=== PATIENT | female | born 1980 | race Hispanic/Latino ===

== ENCOUNTER 2017-07-20 20:15 | Emergency (ER) | payer BC, MEDICAID, OTHER ==
[~2017-07-20 20:15] MED LIST: ACET1TAB12 PO; ALBU8.5H8 IH; DOCU-116 PO; DULO60CA44 PO; IBUP-2071 PO
[2017-07-20] MEDS ORDERED: ONDANSETRON HCL MDV 20ML 2 MG/ML VIAL ONE (20:46)
[2017-07-20] MEDS ORDERED: SODIUM CHLORIDE 0.9% 1000ML 1,000 ML IV ONE (20:46)
[2017-07-20] MEDS ORDERED: KETOROLAC TROMETHAMINE 30MG/ML ONE (20:47)
[2017-07-20 20:48] LABS: BASOPHILS % (AUTO) 0.9 % (0.0-5.0); EOSINOPHILS % (AUTO) 2.2 % (0.0-8.0); HEMATOCRIT 40.2 % (36-48); LYMPHOCYTES % (AUTO) 24.9 % (21.0-51.0); MEAN CORPUSCULAR HEMOGLOBIN 30.8 pg (27.0-33.0); MEAN CORPUSCULAR HGB CONC 34.5 g/dL (32.0-36.0); MEAN CORPUSCULAR VOLUME 89.2 fL (79-99); MONOCYTES % (AUTO) 9.1 % (3.0-13.0); NEUTROPHILS % (AUTO) 62.9 % (40.0-77.0); PLATELET COUNT (AUTO) 279 K/uL (130-400); RED CELL DISTRIBUTION WIDTH 12.7 % (11.0-15.5); WHITE BLOOD COUNT (AUTO) 11.8 K/uL (4.8-10.8)
[2017-07-20 21:06] LABS: CREATININE 0.8 mg/dL (0.5-1.5); POTASSIUM 3.5 mmol/L (3.5-5.1)
[2017-07-20 21:10] LABS: ALBUMIN 3.7 g/dL (3.5-5.0); BILIRUBIN,TOTAL 0.3 mg/dL (0.2-1.0); TOTAL PROTEIN, SERUM 7.8 g/dL (6.0-8.3)
[2017-07-20 21:55] LABS: APPEARANCE,URINE Turbid (CLEAR); BILIRUBIN,URINE Negative (NEGATIVE); COLOR,URINE Yellow (YELLOW); GLUCOSE, URINE (UA) Negative (NEGATIVE); KETONES,URINE Negative (NEGATIVE); LEUKOCYTE ESTERASE ,URINE Small (NEGATIVE); NITRATE,URINE Negative (NEGATIVE); OCCULT BLOOD,URINE Negative (NEGATIVE); PH,URINE 8.5 (5.0-8.0); PROTEIN,URINE Negative (NEGATIVE); UROBILINOGEN,URINE 0.2 mg/dL (0.2-1.0)
[2017-07-20 22:00] LABS: AMORPHOUS SEDIMENT,UR Many /LPF (None Seen); BACTERIA,URINE Few /HPF (None Seen); RBC,URINE None Seen /HPF (0-1); SQUAMOUS EPITHELIAL CELL,UR 0-2 /LPF (0-2); WBC,URINE 0-1 /HPF (0-1)
[2017-07-20] MEDS ORDERED: MAGNESIUM HYDROXIDE 30 ML/UDCUP ONE (22:37)
[2017-07-20] MEDS ORDERED: LIDOCAINE HCL 2% VISCOUS 15 ML UDCUP ONE (22:37)
== END 2017-07-20 22:54 | disposition home or self-care (01) ==
LOC: EDH 20:15
DX: K52.9 Noninfective gastroenteritis and colitis, unspecified (principal); M79.7 Fibromyalgia; J45.909 Unspecified asthma, uncomplicated; M32.9 Systemic lupus erythematosus, unspecified; E07.9 Disorder of thyroid, unspecified; Z88.2 Allergy status to sulfonamides; Z88.1 Allergy status to other antibiotic agents; Z90.49 Acquired absence of other specified parts of digestive tract; Z90.710 Acquired absence of both cervix and uterus
CPT/HCPCS: 36415; 80053; 81001; 82150; 83690; 85025; 93005; 96361; 96374; 96375; 99285; J1885; J7030

== ENCOUNTER 2017-09-24 15:28 | Emergency (ER) | payer BC | END 2017-09-24 15:31 | disposition left against medical advice (07) | LOC: EDH 15:28 | DX: R51 Headache (principal); Z53.21 Procedure and treatment not carried out due to patient leaving prior to being seen by health care provider ==

== ENCOUNTER 2024-04-05 22:57 | Emergency (ER) | payer MEDICARE ==
[~2024-04-05] VITALS: Ht 167.6 cm; Wt 122.0 kg
[~2024-04-05 22:57] MED LIST changes: -DULO60CA44 PO; +DULO60CA45 PO
[2024-04-05 23:10] VITALS: TEMP 98.9
[2024-04-05] MEDS: morPHINE 4 MG SYG IM ONE (23:40)
--- NOTE | 2024-04-06 00:05 | NUR ---
PATIENT WOUND CLEANED AND BANDAGED WITH STERILE 4X4 AND MEDIPORE TAPE.
--- NOTE | 2024-04-06 00:15 | HMCIMG ---
US EXTREMITY NONVASCULAR LMTD REASON: evaluate if SKYLER drain is still in cavity . COMPARISON: None TECHNIQUE: Left posterior thigh ultrasound study was performed. FINDINGS: SKYLER drain is seen in the left posterior thigh region. Soft tissue swelling is seen. No significant fluid collection is seen in this ultrasound study. IMPRESSION: Findings as described above.
--- NOTE | 2024-04-06 00:42 | ERN ---
General Chief Complaint: Other Problems Stated Complaint: DRAIN TO LEFT LEG PULLED OUT Time Seen by MD: 22:59 History of Present Illness Initial Comments Ms. Guerra is a very pleasant 44-year-old morbidly obese female who comes in today with a SKYLER drain issue. Patient reports that she went to [facility] last week to have a lipoma removed. Patient did have a SKYLER drain put on her leg. Patient reports that earlier today she was get into the restroom when the tubing was caught and was pulled. Patient reports that she felt pain in his concerned that it might be out. Allergies: Coded Allergies: Sulfa (Sulfonamide Antibiotics) (Verified Allergy, Unknown, 06/08/16) sulfamethoxazole (Unverified Allergy, Unknown, 04/05/24) trimethoprim (Unverified Allergy, Unknown, 04/05/24) Home Meds Reported Medications Acetaminophen with Codeine (Tylenol with Codeine #3 Tablet) 1 Each Tablet, 1-2 TAB PO Q4-6 PRN for PAIN LEVEL 5 TO 10, #40 TAB 0 Refills 06/12/16 Docusate Sodium (Colace) 100 Mg Capsule, 100 MG PO BID PRN for CONSTIPATION, #60 CAP 0 Refills 06/12/16 Ibuprofen (Ibuprofen) 800 Mg Tablet, 800 MG PO Q8H PRN for PAIN, #60 TAB 0 Refills 06/12/16 Albuterol Sulfate (Proair Hfa) 8.5 Gm Hfa.aer.ad, 90 MCG IH AD PRN for ASTHMA 06/08/16 Duloxetine HCl (Cymbalta) 60 Mg Capsule.dr, 60 MG PO AM, CAP 06/08/16 Past Medical History Past Medical History: Asthma, Fibromyalgia, Migraines, Other Medical History Other: PSORIATIC ARTHRITIS Past Surgical History: Appendectomy, Hysterectomy, Cholecystectomy, Other Surgical History Other: HERNIA,SINOPLASTY,LEFT SHOULDER, LEFT THIGH ROS Dictation Constitutional: Negative for fever,chills, and weight loss Eyes: Negative for injury, pain,redness, and discharge ENT: Negative for injury,pain or swelling Cardiovascular: Negative for chest pain, palpitations, and edema Respiratory: Negative for shortness of breath, cough, and wheezing, Abdomen/GI: Negative for abdominal pain, nausea, vomiting, diarrhea, and constipation Back: Negative for injury and pain : Negative for injury, bleeding and discharge MS/Extremity: Left leg pain Skin: Negative for rash, and discoloration Neuro: Negative for headache, weakness, numbness, tingling, and seizure Psych: Negative for suicide ideation, homicidal ideation, and hallucinations Physical Exam Physical Exam Dictation General: awake, alert, NAD Head/Face: Normocephalic, atraumatic Eyes: PERRL, EOMI, vision at baseline ENT: oral cavity clear, Neck: Trachea midline, supple Cardiovascular: RRR, normal S1/S2, No MRGs, no JVD Respiratory: CTAB, no respiratory distress, No rales or wheezes Abdomen: Soft, non-tender, non-distended, normal bowel sounds, no guarding or rebound. Skin: Warm, dry, normal turgor, no rash MS/Extremity: Left thigh has SKYLER drain with loosened suture but still in place. Neuro: COAx4, GCS 15, strength 5/5, CN 2-12 intact, Psych: Normal behavior, mood, and affect normal MDM Ultrasound of left upper leg shows no significant fluid collection. I did speak to the radiologist who states patient does in fact have a drain in place. Patient will be allowed to be discharged and follow up with your her primary surgeon for further evaluation and care. MDM: Differential diagnosis: Postop problem Rationale: Tests considered and ordered secondary to shared decision making include: Previous outside records reviewed: Old ER visits. Risk of complication and/or morbidity or mortality of patient management: None Medications-Per medication reconciliation Need for hospitalization: Patient does not meet criteria for hospitalization. Need for emergency major/minor surgery: No There are no social concerns with this patient. Prescription drug management Prescriptions will include symptomatic care Patient's prior external medical records from other ER visits were reviewed by me as indicated. Prior testing and results from previous visits were reviewed. Prior tests were taken into account with medical decision making and resource utilization, independent historian/historians were used to obtain complete medical history. I independently interpreted the test that were performed, results were reviewed by me and considered findings on radiology if ordered. Medical management and examination interpretation discussions were had by me with other qualified healthcare professionals as indicated for the patient's care. ED Course Orders Procedure Category Date Status Time Us Extremity US 04/05/24 Resulted Nonvascular Lmtd 23:30 Morphine 4mg Syg PHA 04/06/24 Complete (Morphine 4mg Syg) 00:00 Current Medications Medications (Trade) Dose Ordered Sig/Alpesh Route PRN Reason Start Time Stop Time Status Last Admin Dose Admin Morphine Sulfate (morPHINE 4MG SYG) 4 mg ONCE ONCE IM 04/06/24 00:00 04/06/24 00:01 DC 04/05/24 23:40 Vital Signs Date Time Temp Pulse Resp B/P (MAP) Pulse Ox O2 Delivery O2 Flow Rate FiO2 04/06/24 00:06 85 16 136/73 97 Room Air* 0 21 04/05/24 23:10 99.0 95 14 170/101 99 Room Air* 0 21 04/05/24 22:58 98.4 98 20 189/100 100 Room Air DX & DISP Disposition: Discharge Departure Impression: Primary Impression: Postop check Condition: Stable Additional Instructions: Please follow up with your primary care physician/primary surgeon for further evaluation and care. If you have worsening swelling and pain with evidence of no drain please come back to emergency department immediately. Please follow up with your physicians as previously stated to help manage her drain. Referrals: MICHAEL NICK (PCP) CARLITOS DENNY MD Apr 06, 2024 00:42
[2024-04-06 00:43] VITALS: BP 131/68; PULSE 81; RESP 18; O2SAT 97
--- NOTE | 2024-04-06 00:51 | NUR ---
PATIENT DISCHARGED. UNABLE TO REMOVE FROM TRACKER DUE TO REGISTRATION BEING IN CHART.
== END 2024-04-06 01:00 | disposition home or self-care (01) ==
LOC: EDH 22:57
DX: G89.18 Other acute postprocedural pain (principal); E66.01 Morbid (severe) obesity due to excess calories; J45.909 Unspecified asthma, uncomplicated; M79.7 Fibromyalgia; Z88.1 Allergy status to other antibiotic agents; Z88.2 Allergy status to sulfonamides; Z90.49 Acquired absence of other specified parts of digestive tract; Z90.710 Acquired absence of both cervix and uterus; Z98.890 Other specified postprocedural states
CPT/HCPCS: 99285; 76882; 96372; J2270